=== PATIENT | female | born 1980 | race Caucasian/White ===

== ENCOUNTER 2024-01-26 21:01 | Emergency (ER) | payer OTHER ==
[~2024-01-26] VITALS: Ht 165.1 cm; Wt 117.9 kg
[2024-01-26 21:14] VITALS: BP 132/84; PULSE 83; RESP 14; TEMP 97.1; O2SAT 98
[2024-01-26 21:19] VITALS: BP 132/84; PULSE 83; RESP 14; TEMP 97.1; O2SAT 98
[2024-01-26] MEDS: MORPHINE SULFATE 4 MG/ML SYR IM ONE (22:32)
[2024-01-26] MEDS: ONDANSETRON 4 MG ODT PO ONE (22:33)
[2024-01-26] MEDS: KETOROLAC 60 MG/2 ML VIAL IM ONE (23:03)
[2024-01-26] MEDS ORDERED: IBUP-2213 PO (23:40)
[2024-01-26] MEDS ORDERED: ACET-8905 PO (23:40)
== END 2024-01-26 23:51 | disposition home or self-care (01) ==
LOC: MED 21:01
DX: M54.50 Low back pain, unspecified (principal)
CPT/HCPCS: 81002; 81025; 96372; 99284; J1885; J2270; Q0162